=== PATIENT | male | born 1965 | race African-American/Black ===

== ENCOUNTER 2018-04-26 11:37 | Inpatient (IN) | payer OTHER ==
[2018-04-26 14:06] VITALS: BMI 34.4
--- NOTE | 2018-04-26 16:33 | HP ---
CIWA Score - CIWA Score Nausea/Vomitin-Mild Nausea/No Vomiting Muscle Tremors: 2 Anxiety: 2 Agitation: 1-Slight > Activity Paroxysmal Sweats: 1-Minimal Palms Moist Orientation: 1-Uncertain about Date Tacttile Disturbances: 2-Mild Itch/Numbness/Burn Auditory Disturbances: 0-None Visual Disturbances: 0-None Headache: 2-Mild CIWA-Ar Total Score: 12 Admission [facility] - HPI Chief Complaint: PATIENT PRESENTS WITH XANAX WITHDRAWAL SYMPTOMS. Allergies/Adverse Reactions: Allergies Allergy/AdvReac Type Severity Reaction Status Date / Time No Known Allergies Allergy Verified 04/26/18 15:31 History of Present Illness: PATIENT PRESENTS WITH XANAX WITHDRAWAL SYMPTOMS. PATIENT STARTED BUYING NON- PRESCRIBED XANAX ONE YEAR AGO AND TAKES UP TO 6MG DAILY. PATIENT LAST DOSE WAS YESTERDAY. PATIENT IS ALSO ON MMTP AND TAKES 120MG OF MTD. PENDING DOSE VERIFICATION BY RN. LAST DOSE THIS MORNING. PATIENT ALSO SMOKES CRACK ONCE A MONTH, 2 CIGARETTES. LAST TIME HE SMOKED WAS LAST WEEK. PMH INCLUDES ANXIETY, DEPRESSION, BLADDER CANCER, HTN AND HX OF DVT. NOT ON COUMADIN AT THIS TIME. PATIENT DENIES SI/HI AND SUICIDE ATTEMPTS. DENIES HX OF SEIZURES AND OVERDOSE. Exam Limitations: No Limitations - Ebola screening Have you traveled outside of the country in the last 21 days: No Have you had contact with anyone from an Ebola affected area: No Have you been sick,other than usual withdrawal symptoms: No Do you have a fever: No - Review of Systems Constitutional: Chills, Night Sweats, Changes in sleep EENT: reports: No Symptoms Reported Respiratory: reports: No Symptoms reported Cardiac: reports: No Symptoms Reported GI: reports: Nausea, Poor Fluid Intake, Abdominal cramping : reports: No Symptoms Reported Musculoskeletal: reports: No Symptoms Reported Integumentary: reports: Sweating Neuro: reports: Headache, Tremors Endocrine: reports: No Symptoms Reported Hematology: reports: No Symptoms Reported Psychiatric: reports: Orientated x3, Anxious, Depressed Patient History - Patient Medical History Hx Anemia: No Hx Asthma: No Hx Chronic Obstructive Pulmonary Disease (COPD): No Hx Cancer: Yes (BLADDER) Hx Cardiac Disorders: No Hx Congestive Heart Failure: No Hx Hypertension: No Hx Pacemaker: No HX Cerebrovascular Accident: No Hx Seizures: No Hx Dementia: No Hx Diabetes: No Hx Gastrointestinal Disorders: No Hx Liver Disease: No Hx Genitourinary Disorders: Yes (bladder cancer) Hx Sexually Transmitted Disorders: No Hx Renal Disease (ESRD): No Hx Thyroid Disease: No Hx Human Immunodeficiency Virus (HIV): No Hx Hepatitis C: No Hx Depression: Yes Hx Suicide Attempt: No Hx Bipolar Disorder: No Hx Schizophrenia: No - Patient Surgical History Past Surgical History: No Hx Neurologic Surgery: No Hx Cataract Extraction: No Hx Cardiac Surgery: No Hx Lung Surgery: No Hx Breast Surgery: No Hx Breast Biopsy: No Hx Abdominal Surgery: No Hx Appendectomy: No Hx Cholecystectomy: No Hx Genitourinary Surgery: No Hx Orthopedic Surgery: No Anesthesia Reaction: No - PPD History Documented Results: Positive w/proof PPD to be Administered?: No - Smoking Cessation Smoking history: Current every day smoker Have you smoked in the past 12 months: Yes Aproximately how many cigarettes per day: 5 Cigars Per Day: 0 Hx Chewing Tobacco Use: No Initiated information on smoking cessation: Yes 'Breaking Loose' booklet given: 04/26/18 - Substance & Tx. History Hx Alcohol Use: No Hx Substance Use: Yes Substance Use Type: Cocaine, Opiates, Tranquilizers Hx Substance Use Treatment: Yes - Substances Abused Alprazolam (Xanax) Route: Smoking Frequency: Daily Amount used: 6mg Age of first use: 52 Date of Last Use: 04/25/18 Family Disease History - Family Disease History Family Disease History: [place]: Grandparent (prostate), Brother (bladder) Admission Physical Exam [facility] - Vital Signs Vital Signs: Vital Signs - 24 hr 04/26/18 14:01 Temperature 98 F Pulse Rate 72 Respiratory 20 Rate Blood Pressure 137/73 - Physical General Appearance: Yes: Appropriately Dressed, Tremorous, Sweating, Anxious HEENTM: Yes: EOMI, Hearing grossly Normal, Normocephalic, Normal Voice, GABRIELA, Pharynx Normal Respiratory: Yes: Chest Non-Tender, Lungs Clear, Normal Breath Sounds, No Respiratory Distress, No Accessory Muscle Use Neck: Yes: No masses,lesions,Nodules, Supple Breast: Yes: Breast Exam Deferred Cardiology: Yes: Regular Rhythm, Regular Rate, S1, S2 Abdominal: Yes: Normal Bowel Sounds, Non Tender, Soft Genitourinary: Yes: Within Normal Limits Back: Yes: Normal Inspection Musculoskeletal: Yes: full range of Motion, Gait Steady Extremities: Yes: Normal Inspection, Normal Range of Motion, Non-Tender, Tremors , Swelling Neurological: Yes: commissioner of conciliation II-XII NML intact, Fully Oriented, Alert, Motor Strength 5/5, Normal Response, Depressed Affect Integumentary: Yes: Normal Color, Warm, Moist Lymphatic: Yes: Within Normal Limits - Diagnostic (1) Sedative, hypnotic, or anxiolytic withdrawal Current Visit: Yes Status: Acute (2) Cocaine dependence Current Visit: Yes Status: Chronic Qualifiers: Substance use status: uncomplicated Qualified Code(s): F14.20 - Cocaine dependence, uncomplicated (3) Methadone maintenance therapy patient Current Visit: Yes Status: Chronic (4) HTN (hypertension) Current Visit: Yes Status: Chronic Qualifiers: Hypertension type: unspecified Qualified Code(s): I10 - Essential (primary ) hypertension (5) Leg edema Current Visit: Yes Status: Chronic (6) Transitional cell carcinoma of bladder Current Visit: Yes Status: Chronic Cleared for Admission [facility] - Detox or Rehab [facility] Level of Care: Medically Managed Detox Regimen/Protocol: Valium [facility] Breath Alcohol Content Breath Alcohol Content: 0 Urine Drug Screen - Results Drug Screen Negative: No Urine Drug Screen Results: HERBIE-Cocaine, OPI-Opiates, BZO-Benzodiazepines, MTD- Methadone
[2018-04-26] MEDS ORDERED: MAGNESIUM CITRATE 300 ML BOTTLE PO PRN (16:45)
[2018-04-26] MEDS ORDERED: MENTHOL/PHENOL 1 EACH UD MM PRN (16:45)
[2018-04-26] MEDS ORDERED: guaiFENesin/D-METHORPHAN HB 10 ML UNIT-DOSE CUPS PO PRN (16:45)
[2018-04-26] MEDS ORDERED: hydrOXYzine PAMOATE 50 MG CAPSULE (FP) PO PRN (16:45)
[2018-04-26] MEDS ORDERED: ACETAMINOPHEN 325 MG TABLET (FP) PO PRN (16:45)
[2018-04-26] MEDS ORDERED: LOPERAMIDE HCL 2 MG CAPSULE PO PRN (16:45)
[2018-04-26] MEDS ORDERED: MAGNESIUM HYDROX 2400MG/30ML ORAL SUSPENSION 30 ML CUP PO PRN (16:45)
[2018-04-26] MEDS ORDERED: IBUPROFEN 400 MG TABLET (FP) PO PRN (16:45)
[2018-04-26] MEDS ORDERED: MAG HYDROX/AL HYDROX/SIMETH 30 ML UNIT-DOSE CUP PO PRN (16:45)
[2018-04-26] MEDS ORDERED: P-EPHED 60MG/TRIPROLIDI 2.5MG TABLET PO PRN (16:45)
[2018-04-26] MEDS ORDERED: NICOTINE POLACRILEX 2 MG GUM BC PRN (16:45)
[2018-04-26] MEDS ORDERED: diazePAM 5 MG TABLET PO PRN (16:47)
[2018-04-26] MEDS ORDERED: diazePAM 5 MG TABLET PO ONE (17:15)
[2018-04-26] MEDS ORDERED: MELATONIN 5 MG TABLETS PO PRN (22:00)
[2018-04-26] MEDS: THIAMINE HCL 100 MG TABLET (FP) PO SCH (23:05)
[2018-04-26] MEDS: diazePAM 5 MG TABLET PO SCH (23:05)
[2018-04-27 02:17] LABS: URINE APPEARANCE SLCLOUDY; URINE BILIRUBIN NEGATIVE (<2.0 mg/dL); URINE COLOR YELLOW; URINE GLUCOSE (UA) NEGATIVE (NEGATIVE); URINE KETONE NEGATIVE (NEGATIVE); URINE NITRITE NEGATIVE (NEGATIVE)
[2018-04-27 02:25] LABS: URINE LEUK ESTERASE 1+ (NEGATIVE); URINE PROTEIN 1+ (NEGATIVE)
[2018-04-27 02:33] LABS: EPI CELLS RARE /HPF (FEW); URINE BACTERIA RARE /hpf (NONE SEEN); URINE MUCUS RARE
[2018-04-27] MEDS: diazePAM 5 MG TABLET PO SCH ×3 (06:45→22:39)
[2018-04-27] MEDS ORDERED: METHADONE HCL 10 MG TABLET PO SCH (09:15)
--- NOTE | 2018-04-27 09:15 | CONSULT ---
[facility] Psychiatric Consult - Data Date of interview: 04/27/18 Admission source: [facility] Identifying data: This is 53 years old male, , father of five, homeless, on SSI support, with multiple medical [problems, with no psychiatric hospitalization history.Patient reports long history of Opioids, Cocaine and Xanax dependence, currently onMMTP 120mg per day. Patient reports withdrawal symptoms and seeking for detox. Substance Abuse History: Urine Drug Screen Results: HERBIE-Cocaine, OPI-Opiates, BZO-Benzodiazepines, MTD-Methadone. - Smoking Cessation. Smoking history: Current every day smoker. Have you smoked in the past 12 months: Yes. Aproximately how many cigarettes per day: 5. Cigars Per Day: 0. Hx Chewing Tobacco Use: No. Initiated information on smoking cessation: Yes. 'Breaking Loose' booklet given: 04/26/18. - Substance & Tx. History. Hx Alcohol Use: No. Hx Substance Use: Yes. Substance Use Type: Cocaine, Opiates, Tranquilizers. Hx Substance Use Treatment: Yes. - Substances Abused. Alprazolam (Xanax). Route: Smoking. Frequency: Daily. Amount used: 6mg. Age of first use: 52. Date of Last Use: 04/25/18 Medical History: MMTP 120mg per day, HTN, DM,Transitional Cell Carcinoma of Bladder , lower extremities edema, UTI History, DNT, Cellulitis history, Hematuria history. Psychiatric History: Patient reports history of depression and anxiety, reports no medications taking prior to admission, reports no psychiatric hospitalization history, no suicidal, homicidal history as well. Physical/Sexual Abuse/Trauma History: Denies Additional Comment: Urine Drug Screen Results: HERBIE-Cocaine, OPI-Opiates, BZO- Benzodiazepines, MTD-Methadone Mental Status Exam - Mental Status Exam Alert and Oriented to: Person Cognitive Function: Fair Patient Appearance: Unkempt Mood: Sad Affect: Flat Patient Behavior: Cooperative Speech Pattern: Delayed Voice Loudness: Mildly Soft/Quiet Thought Process: Goal Oriented Thought Disorder: Being Controlled Hallucinations: Denies Suicidal Ideation: Denies Homicidal Ideation: Denies Insight/Judgement: Fair Sleep: Difficulty falling asleep Appetite: Weight loss Muscle strength/Tone: Mild Hypotonicity Gait/Station: Normal Additional Comments: Urine Drug Screen Results: HERBIE-Cocaine, OPI-Opiates, BZO- Benzodiazepines, MTD-Methadone. Observation. Detox Unit Care Protocol Psychiatric Findings - Problem List (Thermal 1, 2,3) (1) Sedative, hypnotic, or anxiolytic withdrawal Current Visit: Yes Status: Acute (2) Cocaine dependence Current Visit: Yes Status: Chronic Qualifiers: Substance use status: uncomplicated Qualified Code(s): F14.20 - Cocaine dependence, uncomplicated (3) HTN (hypertension) Current Visit: Yes Status: Chronic Qualifiers: Hypertension type: unspecified Qualified Code(s): I10 - Essential (primary ) hypertension (4) Leg edema Current Visit: Yes Status: Chronic (5) Methadone maintenance therapy patient Current Visit: Yes Status: Chronic Comment: Urine Drug Screen Results: HERBIE- Cocaine, OPI-Opiates, BZO-Benzodiazepines, MTD-Methadone Observation Detox Unit Care Protocol (6) Transitional cell carcinoma of bladder Current Visit: Yes Status: Chronic (7) Cellulitis Current Visit: No Status: Acute (8) DVT (deep venous thrombosis) Current Visit: No Status: Acute (9) Diabetes mellitus Current Visit: No Status: Acute (10) Hematuria Current Visit: No Status: Acute (11) UTI (lower urinary tract infection) Current Visit: No Status: Acute (12) Urinary retention Current Visit: No Status: Acute - Initial Treatment Plan Initial Treatment Plan: Urine Drug Screen Results: HERBIE-Cocaine, OPI-Opiates, BZO -Benzodiazepines, MTD-Methadone. Observation. Detox Unit Care Protocol
[2018-04-27] MEDS ORDERED: METHADONE HCL 40 MG DISPERSABLE TABLET ONE (09:25)
[2018-04-27] MEDS ORDERED: METHADONE HCL 5 MG TABLET ONE (09:25)
[2018-04-27] MEDS ORDERED: METHADONE HCL 10 MG TABLET ONE (09:26)
[2018-04-27 10:41] LABS: HEMATOCRIT 32.2 % (35.4-49); HEMOGLOBIN 10.8 GM/dL (11.7-16.9); MCH 29.3 pg (25.7-33.7); MCHC 33.5 g/dl (32.0-35.9); MEAN CELL VOLUME 87.6 fl (80-96); MEAN PLT VOLUME 7.8 fl (7.5-11.1); PLATELET COUNT 341 K/MM3 (134-434); RBC 3.68 M/mm3 (4.00-5.60); RDW 15.5 % (11.9-15.9); WHITE BLOOD COUNT 7.2 K/mm3 (4.0-10.0)
[2018-04-27 11:08] LABS: ALBUMIN 2.9 g/dl (3.4-5.0); ANION GAP 8 (8-16); BILIRUBIN,TOTAL 0.2 mg/dL (0.2-1.0); BLOOD UREA NITROGEN 17 mg/dL (7-18); CALCIUM 8.5 mg/dL (8.5-10.1); CHLORIDE 111 mmol/L (98-107); CO2 27 mmol/L (21-32); CREATININE 1.4 mg/dL (0.7-1.3); GLUCOSE,RANDOM 88 mg/dL (74-106); POTASSIUM 4.6 mmol/L (3.5-5.1); SGOT/AST 17 U/L (15-37); SGPT/ALT 17 U/L (12-78); SODIUM 146 mmol/L (136-145)
[2018-04-27] MEDS: PRENATAL VITAMINS W/ FOLIC ACID TABLET (FP) PO SCH (11:14)
[2018-04-27] MEDS: METHADONE 80 MG, METHADONE 30 MG, METHADONE 5 MG PO SCH (11:15)
[2018-04-27] MEDS: NICOTINE 21 MG/24 HOURS TOPICAL PATCH TD SCH (11:20)
--- NOTE | 2018-04-27 11:27 | PN ---
S CIWA - CIWA Score Nausea/Vomitin Muscle Tremors: 3 Anxiety: 3 Agitation: 2 Paroxysmal Sweats: 1-Minimal Palms Moist Orientation: 0-Oriented Tacttile Disturbances: 1-Very Mild Itch/Numbness Auditory Disturbances: 1-Very Mild Visual Disturbances: 0-None Headache: 2-Mild CIWA-Ar Total Score: 16 [facility] Progress Note (SOAP) Subjective: alert,irritable,anxious,interrupted sleep,tremor Objective: 04/27/18 11:25 Vital Signs Temperature 98.2 F 04/27/18 10:28 Pulse Rate 71 04/27/18 10:28 Respiratory Rate 18 04/27/18 10:28 Blood Pressure 126/53 04/27/18 10:28 O2 Sat by Pulse Oximetry (%) ekg nsr,normal ecg qt 412/451 Laboratory Last Values WBC 7.2 K/mm3 (4.0-10.0) 04/27/18 07:00 RBC 3.68 M/mm3 (4.00-5.60) L 04/27/18 07:00 Hgb 10.8 GM/dL (11.7-16.9) L 04/27/18 07:00 Hct 32.2 % (35.4-49) L 04/27/18 07:00 MCV 87.6 fl (80-96) 04/27/18 07:00 MCH 29.3 pg (25.7-33.7) D 04/27/18 07:00 MCHC 33.5 g/dl (32.0-35.9) 04/27/18 07:00 RDW 15.5 % (11.9-15.9) D 04/27/18 07:00 Plt Count 341 K/MM3 (134-434) 04/27/18 07:00 MPV 7.8 fl (7.5-11.1) 04/27/18 07:00 Sodium 146 mmol/L (136-145) H 04/27/18 07:00 Potassium 4.6 mmol/L (3.5-5.1) 04/27/18 07:00 Chloride 111 mmol/L (98-107) H 04/27/18 07:00 Carbon Dioxide 27 mmol/L (21-32) 04/27/18 07:00 Anion Gap 8 (8-16) 04/27/18 07:00 BUN 17 mg/dL (7-18) 04/27/18 07:00 Creatinine 1.4 mg/dL (0.7-1.3) H 04/27/18 07:00 Creat Clearance w eGFR 53.43 (>60) 04/27/18 07:00 Random Glucose 88 mg/dL (74-106) 04/27/18 07:00 Calcium 8.5 mg/dL (8.5-10.1) 04/27/18 07:00 Total Bilirubin 0.2 mg/dL (0.2-1.0) 04/27/18 07:00 AST 17 U/L (15-37) 04/27/18 07:00 ALT 17 U/L (12-78) 04/27/18 07:00 Albumin 2.9 g/dl (3.4-5.0) L 04/27/18 07:00 Urine Color Yellow 04/27/18 00:01 Urine Appearance Slcloudy 04/27/18 00:01 Urine pH 5.0 (5.0-8.0) 04/27/18 00:01 Ur Specific [place] 1.025 (1.001-1.035) 04/27/18 00:01 Urine Protein 1+ (NEGATIVE) H 04/27/18 00:01 Urine Glucose (UA) Negative (NEGATIVE) 04/27/18 00:01 Urine Ketones Negative (NEGATIVE) 04/27/18 00:01 Urine Blood Negative (NEGATIVE) 04/27/18 00:01 Urine Nitrite Negative (NEGATIVE) 04/27/18 00:01 Urine Bilirubin Negative (<2.0 mg/dL) 04/27/18 00:01 Urine Urobilinogen 2.0 mg/dL (0.2-1.0) 04/27/18 00:01 Ur Leukocyte Esterase 1+ (NEGATIVE) H 04/27/18 00:01 Urine WBC (Auto) 37 /hpf (3-5) 04/27/18 00:01 Urine RBC (Auto) 4 /hpf (0-3) 04/27/18 00:01 Ur Epithelial Cells Rare /HPF (FEW) 04/27/18 00:01 Urine Bacteria Rare /hpf (NONE SEEN) 04/27/18 00:01 Urine Mucus Rare 04/27/18 00:01 Assessment: 04/27/18 11:27 withdrawal symptom Plan: continue detox
[2018-04-27 11:34] LABS: ALK PHOS 116 U/L (45-117); TOT PROT 6.4 g/dl (6.4-8.2)
--- NOTE | 2018-04-27 16:49 | EKG ---
Test Reason : Blood Pressure : / mmHG Vent. Rate : 072 BPM Atrial Rate : 072 BPM P-R Int : 154 ms QRS Dur : 092 ms QT Int : 412 ms P-R-T Axes : 014 -08 013 degrees QTc Int : 451 ms NORMAL SINUS RHYTHM NORMAL ECG WHEN COMPARED WITH ECG OF 28-FEB-2015 18:47, NONSPECIFIC T WAVE ABNORMALITY, IMPROVED IN LATERAL LEADS Confirmed by ARIEL GOODE MD ([id number]) on 04/27/2018 3:51:44 PM Referred By: Confirmed By:ARIEL GOODE MD
[2018-04-27] MEDS: THIAMINE HCL 100 MG TABLET (FP) PO SCH (22:39)
[2018-04-28] MEDS ORDERED: METHADONE HCL 40 MG DISPERSABLE TABLET ONE (04:57)
[2018-04-28] MEDS ORDERED: METHADONE HCL 5 MG TABLET ONE (04:57)
[2018-04-28] MEDS ORDERED: METHADONE HCL 10 MG TABLET ONE (04:58)
[2018-04-28] MEDS: METHADONE 80 MG, METHADONE 30 MG, METHADONE 5 MG PO SCH (05:41)
[2018-04-28] MEDS: diazePAM 5 MG TABLET PO SCH ×2 (10:36→22:18)
[2018-04-28] MEDS: PRENATAL VITAMINS W/ FOLIC ACID TABLET (FP) PO SCH (10:36)
[2018-04-28] MEDS: NICOTINE 21 MG/24 HOURS TOPICAL PATCH TD SCH (10:36)
--- NOTE | 2018-04-28 10:37 | PN ---
S CIWA - CIWA Score Nausea/Vomitin Muscle Tremors: 3 Anxiety: 2 Agitation: 2 Paroxysmal Sweats: 1-Minimal Palms Moist Orientation: 0-Oriented Tacttile Disturbances: 1-Very Mild Itch/Numbness Auditory Disturbances: 1-Very Mild Visual Disturbances: 0-None Headache: 2-Mild CIWA-Ar Total Score: 15 [facility] Progress Note (SOAP) Subjective: alert,irritable,anxious,interrupted sleep,tremor Objective: 04/28/18 10:37 Vital Signs Temperature 98.1 F 04/28/18 09:23 Pulse Rate 69 04/28/18 09:23 Respiratory Rate 18 04/28/18 09:23 Blood Pressure 147/82 04/28/18 09:23 O2 Sat by Pulse Oximetry (%) 04/28/18 10:38 Laboratory Last Values WBC 7.2 K/mm3 (4.0-10.0) 04/27/18 07:00 RBC 3.68 M/mm3 (4.00-5.60) L 04/27/18 07:00 Hgb 10.8 GM/dL (11.7-16.9) L 04/27/18 07:00 Hct 32.2 % (35.4-49) L 04/27/18 07:00 MCV 87.6 fl (80-96) 04/27/18 07:00 MCH 29.3 pg (25.7-33.7) D 04/27/18 07:00 MCHC 33.5 g/dl (32.0-35.9) 04/27/18 07:00 RDW 15.5 % (11.9-15.9) D 04/27/18 07:00 Plt Count 341 K/MM3 (134-434) 04/27/18 07:00 MPV 7.8 fl (7.5-11.1) 04/27/18 07:00 Sodium 146 mmol/L (136-145) H 04/27/18 07:00 Potassium 4.6 mmol/L (3.5-5.1) 04/27/18 07:00 Chloride 111 mmol/L (98-107) H 04/27/18 07:00 Carbon Dioxide 27 mmol/L (21-32) 04/27/18 07:00 Anion Gap 8 (8-16) 04/27/18 07:00 BUN 17 mg/dL (7-18) 04/27/18 07:00 Creatinine 1.4 mg/dL (0.7-1.3) H 04/27/18 07:00 Creat Clearance w eGFR 53.43 (>60) 04/27/18 07:00 Random Glucose 88 mg/dL (74-106) 04/27/18 07:00 Calcium 8.5 mg/dL (8.5-10.1) 04/27/18 07:00 Total Bilirubin 0.2 mg/dL (0.2-1.0) 04/27/18 07:00 AST 17 U/L (15-37) 04/27/18 07:00 ALT 17 U/L (12-78) 04/27/18 07:00 Alkaline Phosphatase 116 U/L (45-117) 04/27/18 07:00 Total Protein 6.4 g/dl (6.4-8.2) 04/27/18 07:00 Albumin 2.9 g/dl (3.4-5.0) L 04/27/18 07:00 Urine Color Yellow 04/27/18 00:01 Urine Appearance Slcloudy 04/27/18 00:01 Urine pH 5.0 (5.0-8.0) 04/27/18 00:01 Ur Specific [place] 1.025 (1.001-1.035) 04/27/18 00:01 Urine Protein 1+ (NEGATIVE) H 04/27/18 00:01 Urine Glucose (UA) Negative (NEGATIVE) 04/27/18 00:01 Urine Ketones Negative (NEGATIVE) 04/27/18 00:01 Urine Blood Negative (NEGATIVE) 04/27/18 00:01 Urine Nitrite Negative (NEGATIVE) 04/27/18 00:01 Urine Bilirubin Negative (<2.0 mg/dL) 04/27/18 00:01 Urine Urobilinogen 2.0 mg/dL (0.2-1.0) 04/27/18 00:01 Ur Leukocyte Esterase 1+ (NEGATIVE) H 04/27/18 00:01 Urine WBC (Auto) 37 /hpf (3-5) 04/27/18 00:01 Urine RBC (Auto) 4 /hpf (0-3) 04/27/18 00:01 Ur Epithelial Cells Rare /HPF (FEW) 04/27/18 00:01 Urine Bacteria Rare /hpf (NONE SEEN) 04/27/18 00:01 Urine Mucus Rare 04/27/18 00:01 Assessment: 04/28/18 10:38 withdrawal symptom Plan: continue detox,repeat ua
[2018-04-28] MEDS: THIAMINE HCL 100 MG TABLET (FP) PO SCH (22:18)
[2018-04-29] MEDS ORDERED: METHADONE HCL 5 MG TABLET ONE (04:20)
[2018-04-29] MEDS ORDERED: METHADONE HCL 40 MG DISPERSABLE TABLET ONE (04:20)
[2018-04-29] MEDS ORDERED: METHADONE HCL 10 MG TABLET ONE (04:21)
[2018-04-29] MEDS: METHADONE 80 MG, METHADONE 30 MG, METHADONE 5 MG PO SCH (05:23)
[2018-04-29] MEDS: diazePAM 5 MG TABLET PO SCH ×2 (10:33→23:32)
[2018-04-29] MEDS: PRENATAL VITAMINS W/ FOLIC ACID TABLET (FP) PO SCH (10:33)
[2018-04-29] MEDS: NICOTINE 21 MG/24 HOURS TOPICAL PATCH TD SCH (10:34)
--- NOTE | 2018-04-29 22:35 | PN ---
[facility] Progress Note (SOAP) Subjective: Tremors Sleepy sweats Objective: 04/29/18 22:33 Sitting up on bed Nodding off but easily arousable Vital Signs Temperature 98.1 F 04/29/18 22:18 Pulse Rate 58 L 04/29/18 22:18 Respiratory Rate 18 04/29/18 22:18 Blood Pressure 129/69 04/29/18 22:18 O2 Sat by Pulse Oximetry (%) Assessment: 04/29/18 22:34 withdrawal sx Plan: Continue detox
[2018-04-29] MEDS: THIAMINE HCL 100 MG TABLET (FP) PO SCH (23:32)
[2018-04-30] MEDS ORDERED: METHADONE HCL 5 MG TABLET ONE (04:10)
[2018-04-30] MEDS ORDERED: METHADONE HCL 10 MG TABLET ONE (04:10)
[2018-04-30] MEDS ORDERED: METHADONE HCL 40 MG DISPERSABLE TABLET ONE (04:10)
[2018-04-30] MEDS: METHADONE 80 MG, METHADONE 30 MG, METHADONE 5 MG PO SCH (05:25)
[2018-04-30] MEDS ORDERED: diazePAM 5 MG TABLET PO SCH (10:00)
[2018-04-30 10:55] LABS: URINE APPEARANCE CLEAR; URINE BILIRUBIN NEGATIVE (<2.0 mg/dL); URINE COLOR LTYELLOW; URINE GLUCOSE (UA) NEGATIVE (NEGATIVE); URINE KETONE NEGATIVE (NEGATIVE); URINE LEUK ESTERASE NEGATIVE (NEGATIVE); URINE NITRITE NEGATIVE (NEGATIVE); URINE PROTEIN NEGATIVE (NEGATIVE); URINE UROBILINOGEN NEGATIVE mg/dL (0.2-1.0)
[2018-04-30] MEDS: PRENATAL VITAMINS W/ FOLIC ACID TABLET (FP) PO SCH (11:20)
[2018-04-30] MEDS: NICOTINE 21 MG/24 HOURS TOPICAL PATCH TD SCH (11:21)
--- NOTE | 2018-04-30 11:29 | PN ---
S Progress Note (SOAP) Subjective: Mild tremors and sweats, constipation Objective: 04/30/18 11:28 Vital Signs - 8 hr 04/30/18 04/30/18 04/30/18 03:30 06:00 10:00 Temperature 97.7 F 97.9 F Pulse Rate 63 60 Respiratory 17 18 18 Rate Blood Pressure 127/64 121/67 Laboratory Last Values WBC 7.2 K/mm3 (4.0-10.0) 04/27/18 07:00 RBC 3.68 M/mm3 (4.00-5.60) L 04/27/18 07:00 Hgb 10.8 GM/dL (11.7-16.9) L 04/27/18 07:00 Hct 32.2 % (35.4-49) L 04/27/18 07:00 MCV 87.6 fl (80-96) 04/27/18 07:00 MCH 29.3 pg (25.7-33.7) D 04/27/18 07:00 MCHC 33.5 g/dl (32.0-35.9) 04/27/18 07:00 RDW 15.5 % (11.9-15.9) D 04/27/18 07:00 Plt Count 341 K/MM3 (134-434) 04/27/18 07:00 MPV 7.8 fl (7.5-11.1) 04/27/18 07:00 Sodium 146 mmol/L (136-145) H 04/27/18 07:00 Potassium 4.6 mmol/L (3.5-5.1) 04/27/18 07:00 Chloride 111 mmol/L (98-107) H 04/27/18 07:00 Carbon Dioxide 27 mmol/L (21-32) 04/27/18 07:00 Anion Gap 8 (8-16) 04/27/18 07:00 BUN 17 mg/dL (7-18) 04/27/18 07:00 Creatinine 1.4 mg/dL (0.7-1.3) H 04/27/18 07:00 Creat Clearance w eGFR 53.43 (>60) 04/27/18 07:00 Random Glucose 88 mg/dL (74-106) 04/27/18 07:00 Calcium 8.5 mg/dL (8.5-10.1) 04/27/18 07:00 Total Bilirubin 0.2 mg/dL (0.2-1.0) 04/27/18 07:00 AST 17 U/L (15-37) 04/27/18 07:00 ALT 17 U/L (12-78) 04/27/18 07:00 Alkaline Phosphatase 116 U/L (45-117) 04/27/18 07:00 Total Protein 6.4 g/dl (6.4-8.2) 04/27/18 07:00 Albumin 2.9 g/dl (3.4-5.0) L 04/27/18 07:00 Urine Color Ltyellow 04/30/18 08:00 Urine Appearance Clear 04/30/18 08:00 Urine pH 7.0 (5.0-8.0) D 04/30/18 08:00 Ur Specific [place] 1.013 (1.001-1.035) 04/30/18 08:00 Urine Protein Negative (NEGATIVE) 04/30/18 08:00 Urine Glucose (UA) Negative (NEGATIVE) 04/30/18 08:00 Urine Ketones Negative (NEGATIVE) 04/30/18 08:00 Urine Blood Negative (NEGATIVE) 04/30/18 08:00 Urine Nitrite Negative (NEGATIVE) 04/30/18 08:00 Urine Bilirubin Negative (<2.0 mg/dL) 04/30/18 08:00 Urine Urobilinogen Negative mg/dL (0.2-1.0) 04/30/18 08:00 Ur Leukocyte Esterase Negative (NEGATIVE) 04/30/18 08:00 Urine WBC (Auto) 37 /hpf (3-5) 04/27/18 00:01 Urine RBC (Auto) 4 /hpf (0-3) 04/27/18 00:01 Ur Epithelial Cells Rare /HPF (FEW) 04/27/18 00:01 Urine Bacteria Rare /hpf (NONE SEEN) 04/27/18 00:01 Urine Mucus Rare 04/27/18 00:01 RPR Titer Nonreactive (NONREACTIVE) 04/27/18 07:00 Labs noted Assessment: 04/30/18 11:29 Withdrawal sx Constipation Plan: Continue detox Encouraged to drink water and to ask RN for MOM
[2018-04-30] MEDS: THIAMINE HCL 100 MG TABLET (FP) PO SCH (23:57)
[2018-05-01] MEDS ORDERED: METHADONE HCL 10 MG TABLET ONE (03:45)
[2018-05-01] MEDS ORDERED: METHADONE HCL 40 MG DISPERSABLE TABLET ONE (03:45)
[2018-05-01] MEDS ORDERED: METHADONE HCL 5 MG TABLET ONE (03:45)
[2018-05-01] MEDS: METHADONE 80 MG, METHADONE 30 MG, METHADONE 5 MG PO SCH (05:54)
--- NOTE | 2018-05-01 08:39 | PN ---
S Progress Note (SOAP) Subjective: alert,no complaint Objective: 05/01/18 08:38 Vital Signs Temperature 97.7 F 05/01/18 06:32 Pulse Rate 63 05/01/18 06:32 Respiratory Rate 18 05/01/18 06:32 Blood Pressure 123/78 05/01/18 06:32 O2 Sat by Pulse Oximetry (%) Assessment: 05/01/18 08:38 detox completed,no withdrawal symptom Plan: discharge today,follow up with after care program as arrangement
--- NOTE | 2018-05-01 08:46 | DS ---
[facility] Detox Discharge Summary Admission Date: 04/26/18 Discharge Date: 05/01/18 - History Present History: Cocaine Dependence, Sedative Dependence, MMTP Additional Comments: follow up with after care program as arrangement Pertinent Past History: hypertension edema of legs carcinoma of bladder - Physical Exam Results Vital Signs: Vital Signs Temperature 97.7 F 05/01/18 06:32 Pulse Rate 63 05/01/18 06:32 Respiratory Rate 18 05/01/18 06:32 Blood Pressure 123/78 05/01/18 06:32 O2 Sat by Pulse Oximetry (%) Pertinent Admission Physical Exam Findings: withdrawal signs and symptom Laboratory Last Values WBC 7.2 K/mm3 (4.0-10.0) 04/27/18 07:00 RBC 3.68 M/mm3 (4.00-5.60) L 04/27/18 07:00 Hgb 10.8 GM/dL (11.7-16.9) L 04/27/18 07:00 Hct 32.2 % (35.4-49) L 04/27/18 07:00 MCV 87.6 fl (80-96) 04/27/18 07:00 MCH 29.3 pg (25.7-33.7) D 04/27/18 07:00 MCHC 33.5 g/dl (32.0-35.9) 04/27/18 07:00 RDW 15.5 % (11.9-15.9) D 04/27/18 07:00 Plt Count 341 K/MM3 (134-434) 04/27/18 07:00 MPV 7.8 fl (7.5-11.1) 04/27/18 07:00 Sodium 146 mmol/L (136-145) H 04/27/18 07:00 Potassium 4.6 mmol/L (3.5-5.1) 04/27/18 07:00 Chloride 111 mmol/L (98-107) H 04/27/18 07:00 Carbon Dioxide 27 mmol/L (21-32) 04/27/18 07:00 Anion Gap 8 (8-16) 04/27/18 07:00 BUN 17 mg/dL (7-18) 04/27/18 07:00 Creatinine 1.4 mg/dL (0.7-1.3) H 04/27/18 07:00 Creat Clearance w eGFR 53.43 (>60) 04/27/18 07:00 Random Glucose 88 mg/dL (74-106) 04/27/18 07:00 Calcium 8.5 mg/dL (8.5-10.1) 04/27/18 07:00 Total Bilirubin 0.2 mg/dL (0.2-1.0) 04/27/18 07:00 AST 17 U/L (15-37) 04/27/18 07:00 ALT 17 U/L (12-78) 04/27/18 07:00 Alkaline Phosphatase 116 U/L (45-117) 04/27/18 07:00 Total Protein 6.4 g/dl (6.4-8.2) 04/27/18 07:00 Albumin 2.9 g/dl (3.4-5.0) L 04/27/18 07:00 Urine Color Ltyellow 04/30/18 08:00 Urine Appearance Clear 04/30/18 08:00 Urine pH 7.0 (5.0-8.0) D 04/30/18 08:00 Ur Specific [place] 1.013 (1.001-1.035) 04/30/18 08:00 Urine Protein Negative (NEGATIVE) 04/30/18 08:00 Urine Glucose (UA) Negative (NEGATIVE) 04/30/18 08:00 Urine Ketones Negative (NEGATIVE) 04/30/18 08:00 Urine Blood Negative (NEGATIVE) 04/30/18 08:00 Urine Nitrite Negative (NEGATIVE) 04/30/18 08:00 Urine Bilirubin Negative (<2.0 mg/dL) 04/30/18 08:00 Urine Urobilinogen Negative mg/dL (0.2-1.0) 04/30/18 08:00 Ur Leukocyte Esterase Negative (NEGATIVE) 04/30/18 08:00 Urine WBC (Auto) 37 /hpf (3-5) 04/27/18 00:01 Urine RBC (Auto) 4 /hpf (0-3) 04/27/18 00:01 Ur Epithelial Cells Rare /HPF (FEW) 04/27/18 00:01 Urine Bacteria Rare /hpf (NONE SEEN) 04/27/18 00:01 Urine Mucus Rare 04/27/18 00:01 RPR Titer Nonreactive (NONREACTIVE) 04/27/18 07:00 Vital Signs Temperature 97.7 F 05/01/18 06:32 Pulse Rate 63 05/01/18 06:32 Respiratory Rate 18 05/01/18 06:32 Blood Pressure 123/78 05/01/18 06:32 O2 Sat by Pulse Oximetry (%) - Treatment Hospital Course: Detox Protocol Followed, Detoxed Safely, Responded well, Discharged Condition Good, Rehab Referral Accepted Patient has Accepted a Rehab Referral to: [facility] - Medication Discharge Medications: Ambulatory Orders Methadone [Dolophine -] 80 mg PO DAILY 01/16/15 Warfarin Sodium [Coumadin] 5 mg PO DAILY 05/13/15 - Diagnosis (1) Sedative, hypnotic, or anxiolytic withdrawal Current Visit: Yes Status: Acute (2) Cocaine dependence Current Visit: Yes Status: Chronic Qualifiers: Substance use status: uncomplicated Qualified Code(s): F14.20 - Cocaine dependence, uncomplicated (3) HTN (hypertension) Current Visit: Yes Status: Chronic Qualifiers: Hypertension type: unspecified Qualified Code(s): I10 - Essential (primary ) hypertension (4) Leg edema Current Visit: Yes Status: Chronic (5) Methadone maintenance therapy patient Current Visit: Yes Status: Chronic (6) Transitional cell carcinoma of bladder Current Visit: Yes Status: Chronic - AMA Did Patient Leave Against Medical Advice: No
--- NOTE | 2018-05-01 08:54 | PN ---
[facility] Progress Note Note: patient is non compliance on taking medication,did not take coumadin for months, did not want to take medication,he will go to see his primary care provider for evaluation upon discharge,follow up with new focus as arrangement
[2018-05-01 10:01] VITALS: BP 128/69; PULSE 76; TEMP 98.4
[2018-05-01] MEDS: NICOTINE 21 MG/24 HOURS TOPICAL PATCH TD SCH (10:35)
[2018-05-01] MEDS: PRENATAL VITAMINS W/ FOLIC ACID TABLET (FP) PO SCH (10:35)
== END 2018-05-01 13:32 | disposition other institution (70) | DRG 773 ==
LOC: YASAS 11:37 → Y6N 16:19
PROVIDERS: ADMIT Surgery; ATTEND Surgery
PROC: HZ2ZZZZ Detoxification Services for Substance Abuse Treatment (ICD-10-PCS; principal; 2018-04-26)
DX: F13.230 Sedative, hypnotic or anxiolytic dependence with withdrawal, uncomplicated (principal); F11.20 Opioid dependence, uncomplicated; F14.20 Cocaine dependence, uncomplicated; F17.210 Nicotine dependence, cigarettes, uncomplicated; I10 Essential (primary) hypertension; R60.0 Localized edema; C67.9 Malignant neoplasm of bladder, unspecified; K59.00 Constipation, unspecified; Z91.14 Patient's other noncompliance with medication regimen
CPT/HCPCS: 36415; 80053; 81003; 81015; 85027; 86593; 93005; 93010

== ENCOUNTER 2018-05-01 13:49 | Inpatient (IN) | payer OTHER ==
--- NOTE | 2018-05-01 14:21 | HP ---
Psychiatrist Admission - Data Date of interview: 05/01/18 Admission source: 6N Identifying data: This is the first [facility] admission for this 53 years old Black male, father of 5 children, unemployed on SSI/SSD, homeless Medical History: Significant for history of treatment for PPD+, DVT and bladder cancer. Patient is on methadone 115 mg/day. Smokes 5 cigarettes daily Psychiatric History: Denies history of previous psychiatric treatment Physical/Sexual Abuse/Trauma History: Denies emotional, physical or sexual abuse as well as DV relationship. No service Additional Comment: Reports history of multiple previous arrests including one felony convictions on charges of robbery. Reports serving over 20 years in long term Allergies/Adverse Reactions: Allergies Allergy/AdvReac Type Severity Reaction Status Date / Time No Known Allergies Allergy Verified 04/26/18 15:31 Date of last physical exam: 04/26/18 Concur with the findings of this exam: Yes - Substance Abuse/Tx History Hx Alcohol Use: No Hx Substance Use: Yes Substance Use Type: Tranquilizers (Started using xanax at age 52, consumes 6 mg daily. Last used on 04/25/18) Hx Substance Use Treatment: Yes (Currently attends [facility]. @ previous inpt detox. [facility]) Mental Status Exam - Mental Status Exam Alert and Oriented to: Time, Place, Person Cognitive Function: Fair Patient Appearance: Well Groomed Mood: Hopeful, Euthymic Affect: Appropriate Patient Behavior: Cooperative Speech Pattern: Clear Voice Loudness: Normal Thought Process: Intact Thought Disorder: Not Present Hallucinations: Denies Suicidal Ideation: Denies Homicidal Ideation: Denies Insight/Judgement: Fair Sleep: Well Appetite: Good Muscle strength/Tone: Normal Gait/Station: Normal Psychiatric Findings - Problem List ([place] 1, 2,3) (1) Sedative hypnotic or anxiolytic dependence Current Visit: Yes Status: Acute (2) Opioid dependence on agonist therapy Current Visit: Yes Status: Chronic (3) Nicotine dependence Current Visit: Yes Status: Chronic (4) Transitional cell carcinoma of bladder Current Visit: No Status: Suspected - Initial Treatment Plan Initial Treatment Plan: Monitor progress
--- NOTE | 2018-05-01 15:44 | HP ---
YVETTE SEYMOUR Rehab Assess/Revision - Admission History Admitted to Rehab from: [facility] [place] Date of Admission to Rehab: 05/01/18 - Findings Detox History & Physical reviewed: Yes Concur with findings: Yes Comments/Additional Findings: for rhab as proocol Inpatient Rehab Admission - Initial Determination Are CD services needed?: Yes Free of communicable disease: Yes Not in need of hospitalization: No - Rehab Admission Criteria Previous failed treatment: Yes Poor recovery environment: Yes Comorbidities: Yes Lacks judgement: No Patient is meeting Inpatient Rehab admission criteria:: Yes
[2018-05-01] MEDS ORDERED: MENTHOL/PHENOL 1 EACH UD MM PRN (15:45)
[2018-05-01] MEDS ORDERED: hydrOXYzine PAMOATE 50 MG CAPSULE (FP) PO PRN (15:45)
[2018-05-01] MEDS ORDERED: P-EPHED 60MG/TRIPROLIDI 2.5MG TABLET PO PRN (15:45)
[2018-05-01] MEDS ORDERED: ACETAMINOPHEN 325 MG TABLET (FP) PO PRN (15:45)
[2018-05-01] MEDS ORDERED: IBUPROFEN 400 MG TABLET (FP) PO PRN (15:45)
[2018-05-01] MEDS ORDERED: guaiFENesin/D-METHORPHAN HB 10 ML UNIT-DOSE CUPS PO PRN (15:45)
[2018-05-01] MEDS ORDERED: MAGNESIUM HYDROX 2400MG/30ML ORAL SUSPENSION 30 ML CUP PO PRN (15:45)
[2018-05-01] MEDS ORDERED: MAGNESIUM CITRATE 300 ML BOTTLE PO PRN (15:45)
[2018-05-01] MEDS ORDERED: MAG HYDROX/AL HYDROX/SIMETH 30 ML UNIT-DOSE CUP PO PRN (15:45)
[2018-05-01] MEDS: THIAMINE HCL 100 MG TABLET (FP) PO SCH (21:32)
[2018-05-02] MEDS ORDERED: METHADONE HCL 10 MG TABLET PO SCH (06:00)
[2018-05-02] MEDS ORDERED: METHADONE HCL 10 MG TABLET ONE (06:14)
[2018-05-02] MEDS ORDERED: METHADONE HCL 5 MG TABLET ONE (06:14)
[2018-05-02] MEDS ORDERED: METHADONE HCL 40 MG DISPERSABLE TABLET ONE (06:15)
[2018-05-02] MEDS: METHADONE 80 MG, METHADONE 30 MG, METHADONE 5 MG PO SCH (06:15)
--- NOTE | 2018-05-02 09:15 | HP ---
Psychiatrist Admission - Data Date of interview: 05/02/18 Admission source: 6N Identifying data: This is the first [facility] admission for this 53 years old single male, father of 2 children, unemployed on SSI Medical History: Significant for hypertension, PPD+ and history of treatment for DVT and bladder cancer. Patient is on methadone 120 mg/day. Smokes 5 cigarettes daily Vital Signs: Vital Signs - 24 hr 05/02/18 05/02/18 05/02/18 00:50 03:30 06:36 Temperature 98.1 F Pulse Rate 58 L Respiratory 18 18 19 Rate Blood Pressure 125/76 Allergies/Adverse Reactions: Allergies Allergy/AdvReac Type Severity Reaction Status Date / Time No Known Allergies Allergy Verified 04/26/18 15:31 Date of last physical exam: 04/26/18 Concur with the findings of this exam: Yes - Substance Abuse/Tx History Hx Alcohol Use: No Hx Substance Use: Yes Substance Use Type: Prescribed (Started using xanax at age 52, consumes 6 mg daily. Last used on 04/25/18) Psychiatric Findings - Problem List ([place] 1, 2,3) (1) Sedative hypnotic or anxiolytic dependence Current Visit: Yes Status: Acute (2) Opioid dependence on agonist therapy Current Visit: Yes Status: Chronic (3) Nicotine dependence Current Visit: Yes Status: Chronic (4) Transitional cell carcinoma of bladder Current Visit: No Status: Suspected
[2018-05-02] MEDS: PRENATAL VITAMINS W/ FOLIC ACID TABLET (FP) PO SCH (10:23)
[2018-05-02] MEDS ORDERED: PNEUMOC 13-VAL CONJ-DIP CRM/PF 0.5 ML DISP.SYRIN IM ONE (12:00)
[2018-05-02 15:28] LABS: ALBUMIN 3.5 g/dl (3.4-5.0); ANION GAP 5 (8-16); BLOOD UREA NITROGEN 28 mg/dL (7-18); CALCIUM 9.3 mg/dL (8.5-10.1); CHLORIDE 102 mmol/L (98-107); CO2 33 mmol/L (21-32); CREATININE 1.6 mg/dL (0.7-1.3); GLUCOSE,RANDOM 121 mg/dL (74-106); POTASSIUM 4.9 mmol/L (3.5-5.1); SGOT/AST 21 U/L (15-37); SGPT/ALT 24 U/L (12-78); SODIUM 140 mmol/L (136-145)
[2018-05-02 15:29] LABS: ALK PHOS 131 U/L (45-117); BILIRUBIN,TOTAL 0.2 mg/dL (0.2-1.0); TOT PROT 7.4 g/dl (6.4-8.2)
[2018-05-02 15:58] LABS: HEMATOCRIT 34.7 % (35.4-49); HEMOGLOBIN 11.5 GM/dL (11.7-16.9); MCH 29.1 pg (25.7-33.7); MCHC 33.1 g/dl (32.0-35.9); MEAN CELL VOLUME 88.1 fl (80-96); MEAN PLT VOLUME 7.8 fl (7.5-11.1); PLATELET COUNT 366 K/MM3 (134-434); RBC 3.94 M/mm3 (4.00-5.60); RDW 15.2 % (11.9-15.9)
[2018-05-02 16:24] LABS: INR 1.05 (0.83-1.09); PROTHROMBIN TIME (PATIENT) 11.9 SEC (9.7-13.0)
[2018-05-02] MEDS: THIAMINE HCL 100 MG TABLET (FP) PO SCH (21:38)
[2018-05-03] MEDS ORDERED: METHADONE HCL 40 MG DISPERSABLE TABLET ONE (06:22)
[2018-05-03] MEDS ORDERED: METHADONE HCL 5 MG TABLET ONE (06:22)
[2018-05-03] MEDS ORDERED: METHADONE HCL 10 MG TABLET ONE (06:22)
[2018-05-03] MEDS: METHADONE 80 MG, METHADONE 30 MG, METHADONE 5 MG PO SCH (06:23)
[2018-05-03] MEDS: PRENATAL VITAMINS W/ FOLIC ACID TABLET (FP) PO SCH (10:31)
[2018-05-03] MEDS: MELATONIN 5 MG TABLETS PO PRN (21:32)
[2018-05-03] MEDS: THIAMINE HCL 100 MG TABLET (FP) PO SCH (21:32)
[2018-05-04] MEDS ORDERED: METHADONE HCL 40 MG DISPERSABLE TABLET ONE (05:07)
[2018-05-04] MEDS ORDERED: METHADONE HCL 5 MG TABLET ONE (05:07)
[2018-05-04] MEDS ORDERED: METHADONE HCL 10 MG TABLET ONE (05:07)
[2018-05-04] MEDS: METHADONE 80 MG, METHADONE 30 MG, METHADONE 5 MG PO SCH (06:17)
[2018-05-04] MEDS: PRENATAL VITAMINS W/ FOLIC ACID TABLET (FP) PO SCH (10:58)
[2018-05-04] MEDS: THIAMINE HCL 100 MG TABLET (FP) PO SCH (22:23)
[2018-05-05] MEDS ORDERED: METHADONE HCL 10 MG TABLET ONE (02:59)
[2018-05-05] MEDS ORDERED: METHADONE HCL 5 MG TABLET ONE (02:59)
[2018-05-05] MEDS ORDERED: METHADONE HCL 40 MG DISPERSABLE TABLET ONE (03:00)
[2018-05-05] MEDS: METHADONE 80 MG, METHADONE 30 MG, METHADONE 5 MG PO SCH (06:09)
[2018-05-05] MEDS: PRENATAL VITAMINS W/ FOLIC ACID TABLET (FP) PO SCH (10:41)
[2018-05-05] MEDS: MELATONIN 5 MG TABLETS PO PRN (21:32)
[2018-05-05] MEDS: THIAMINE HCL 100 MG TABLET (FP) PO SCH (21:32)
[2018-05-06] MEDS ORDERED: METHADONE HCL 5 MG TABLET ONE (04:38)
[2018-05-06] MEDS ORDERED: METHADONE HCL 40 MG DISPERSABLE TABLET ONE (04:39)
[2018-05-06] MEDS ORDERED: METHADONE HCL 10 MG TABLET ONE (04:39)
[2018-05-06] MEDS: METHADONE 80 MG, METHADONE 30 MG, METHADONE 5 MG PO SCH (06:19)
[2018-05-06] MEDS: PRENATAL VITAMINS W/ FOLIC ACID TABLET (FP) PO SCH (10:22)
[2018-05-06] MEDS: THIAMINE HCL 100 MG TABLET (FP) PO SCH (21:55)
[2018-05-07] MEDS ORDERED: METHADONE HCL 5 MG TABLET ONE (05:32)
[2018-05-07] MEDS ORDERED: METHADONE HCL 10 MG TABLET ONE (05:33)
[2018-05-07] MEDS ORDERED: METHADONE HCL 40 MG DISPERSABLE TABLET ONE (05:33)
[2018-05-07] MEDS: METHADONE 80 MG, METHADONE 30 MG, METHADONE 5 MG PO SCH (06:31)
[2018-05-07] MEDS: PRENATAL VITAMINS W/ FOLIC ACID TABLET (FP) PO SCH (10:42)
[2018-05-07] MEDS: THIAMINE HCL 100 MG TABLET (FP) PO SCH (22:03)
[2018-05-08] MEDS ORDERED: METHADONE HCL 5 MG TABLET ONE (06:33)
[2018-05-08] MEDS ORDERED: METHADONE HCL 10 MG TABLET ONE (06:33)
[2018-05-08] MEDS ORDERED: METHADONE HCL 40 MG DISPERSABLE TABLET ONE (06:34)
[2018-05-08] MEDS: METHADONE 80 MG, METHADONE 30 MG, METHADONE 5 MG PO SCH (06:34)
[2018-05-08] MEDS: LOPERAMIDE HCL 2 MG CAPSULE PO PRN (06:38)
[2018-05-08] MEDS: PRENATAL VITAMINS W/ FOLIC ACID TABLET (FP) PO SCH (10:19)
[2018-05-08] MEDS: THIAMINE HCL 100 MG TABLET (FP) PO SCH (21:31)
[2018-05-08] MEDS: MELATONIN 5 MG TABLETS PO PRN (21:31)
[2018-05-09] MEDS ORDERED: METHADONE HCL 10 MG TABLET ONE (02:57)
[2018-05-09] MEDS ORDERED: METHADONE HCL 5 MG TABLET ONE (02:57)
[2018-05-09] MEDS ORDERED: METHADONE HCL 40 MG DISPERSABLE TABLET ONE (02:58)
[2018-05-09] MEDS: METHADONE 80 MG, METHADONE 30 MG, METHADONE 5 MG PO SCH (06:08)
[2018-05-09] MEDS: PRENATAL VITAMINS W/ FOLIC ACID TABLET (FP) PO SCH (10:48)
[2018-05-09] MEDS: THIAMINE HCL 100 MG TABLET (FP) PO SCH (21:47)
[2018-05-09] MEDS: MELATONIN 5 MG TABLETS PO PRN (21:47)
[2018-05-10] MEDS ORDERED: METHADONE HCL 5 MG TABLET ONE (05:34)
[2018-05-10] MEDS ORDERED: METHADONE HCL 10 MG TABLET ONE (05:35)
[2018-05-10] MEDS ORDERED: METHADONE HCL 40 MG DISPERSABLE TABLET ONE (05:35)
[2018-05-10] MEDS: METHADONE 80 MG, METHADONE 30 MG, METHADONE 5 MG PO SCH (06:01)
[2018-05-10] MEDS: PRENATAL VITAMINS W/ FOLIC ACID TABLET (FP) PO SCH (10:37)
[2018-05-10] MEDS: THIAMINE HCL 100 MG TABLET (FP) PO SCH (21:49)
[2018-05-11] MEDS ORDERED: METHADONE HCL 5 MG TABLET ONE (03:41)
[2018-05-11] MEDS ORDERED: METHADONE HCL 40 MG DISPERSABLE TABLET ONE (03:41)
[2018-05-11] MEDS ORDERED: METHADONE HCL 10 MG TABLET ONE (03:41)
[2018-05-11] MEDS: METHADONE 80 MG, METHADONE 30 MG, METHADONE 5 MG PO SCH (06:04)
[2018-05-11] MEDS: PRENATAL VITAMINS W/ FOLIC ACID TABLET (FP) PO SCH (10:42)
[2018-05-11] MEDS: THIAMINE HCL 100 MG TABLET (FP) PO SCH (22:03)
[2018-05-12] MEDS ORDERED: METHADONE HCL 5 MG TABLET ONE (04:09)
[2018-05-12] MEDS ORDERED: METHADONE HCL 10 MG TABLET ONE (04:10)
[2018-05-12] MEDS ORDERED: METHADONE HCL 40 MG DISPERSABLE TABLET ONE (04:10)
[2018-05-12] MEDS: METHADONE 80 MG, METHADONE 30 MG, METHADONE 5 MG PO SCH (06:05)
[2018-05-12] MEDS: LOPERAMIDE HCL 2 MG CAPSULE PO PRN (06:08)
[2018-05-12] MEDS: PRENATAL VITAMINS W/ FOLIC ACID TABLET (FP) PO SCH (10:37)
--- NOTE | 2018-05-12 12:31 | PN ---
YVETTE Progress Note Note: patient has history of bladder cancer seen bu urologist at [facility] will follow up with his urologist upon discharge patient did not take coumadin for 1 year,will see his primary care provider upon discharge
[2018-05-12] MEDS: THIAMINE HCL 100 MG TABLET (FP) PO SCH (21:40)
[2018-05-13] MEDS ORDERED: METHADONE HCL 5 MG TABLET ONE (04:50)
[2018-05-13] MEDS ORDERED: METHADONE HCL 40 MG DISPERSABLE TABLET ONE (04:51)
[2018-05-13] MEDS ORDERED: METHADONE HCL 10 MG TABLET ONE (04:51)
[2018-05-13] MEDS: METHADONE 80 MG, METHADONE 30 MG, METHADONE 5 MG PO SCH (06:10)
[2018-05-13] MEDS: PRENATAL VITAMINS W/ FOLIC ACID TABLET (FP) PO SCH (10:36)
[2018-05-13] MEDS: THIAMINE HCL 100 MG TABLET (FP) PO SCH (21:30)
[2018-05-13] MEDS: LOPERAMIDE HCL 2 MG CAPSULE PO PRN (21:31)
[2018-05-14] MEDS ORDERED: METHADONE HCL 5 MG TABLET ONE (05:16)
[2018-05-14] MEDS ORDERED: METHADONE HCL 40 MG DISPERSABLE TABLET ONE (05:17)
[2018-05-14] MEDS ORDERED: METHADONE HCL 10 MG TABLET ONE (05:17)
[2018-05-14] MEDS: METHADONE 80 MG, METHADONE 30 MG, METHADONE 5 MG PO SCH (06:14)
[2018-05-14] MEDS: PRENATAL VITAMINS W/ FOLIC ACID TABLET (FP) PO SCH (10:22)
--- NOTE | 2018-05-14 15:52 | PN ---
Psychiatric Progress Note Vital Signs: Vital Signs Period Temp Pulse Resp BP Sys/Galdamez Pulse Ox Last 24 Hr 98.0 F 63 18-18 127/79 Date of Session: 05/14/18 Chief Complaint:: Discharge Note HPI: Patient addressing Sedative dependence comorbid with Opioid Dependence on Agonist Therapy, Nicotine Dependence ROS: PPD+, DVT, Bladded cancer Current Medications: Active Medications Generic Name Dose Route Start Last Admin Trade Name Freq PRN Reason Stop Dose Admin Acetaminophen 650 mg 05/01/18 15:45 Tylenol - PO Q4H PRN FEVER Al Hydroxide/Mg Hydroxide 30 ml 05/01/18 15:45 Mylanta Oral Suspension - PO Q6H PRN DYSPEPSIA Eucalyptus/Menthol/Phenol/Sorbitol 1 each 05/01/18 15:45 Cepastat Lozenge - MM Q4H PRN SORE THROAT Guaifenesin 10 ml 05/01/18 15:45 Robitussin Dm - PO Q6H PRN COUGH Hydroxyzine Pamoate 50 mg 05/01/18 15:45 05/06/18 21:56 Vistaril - PO 50 mg Q4H PRN Administration AGITATION Ibuprofen 400 mg 05/01/18 15:45 Motrin - PO Q6H PRN Pain Level 4-6 Loperamide HCl 4 mg 05/01/18 15:45 05/13/18 21:31 Imodium - PO 4 mg Q6H PRN Administration DIARRHEA Magnesium Citrate 300 ml 05/01/18 15:45 Citroma - PO Q48H PRN CONSTIPATION Magnesium Hydroxide 30 ml 05/01/18 15:45 Milk Of Magnesia - PO DAILY PRN CONSTIPATION Melatonin 5 mg 05/01/18 22:00 05/09/18 21:47 Melatonin PO 5 mg HS PRN Administration INSOMNIA Methadone HCl 80 mg/ Methadone 115 mg 05/08/18 06:00 05/14/18 06:14 HCl 30 mg/ Methadone HCl 5 mg PO 05/15/18 05:59 115 mg DAILY@0600 NORBERTO Administration Multivit/Folic Acid/Iron 1 tab 05/02/18 10:00 05/14/18 10:22 Vitamins (Sjr) - PO Not Given DAILY NORBERTO Thiamine HCl 100 mg 05/01/18 22:00 05/13/18 21:30 Vitamin B1 - PO 100 mg HS NORBERTO Administration Current Side Effect: No Lab tests ordered: Yes Lab tests reviewed: Yes Provider note:: Patient will complete this program on 05/15/18. He has met his treatment goals and will continue to address his issues in outpatient treatment at [facility]. 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 He is stable for discharge to discharge on 05/15/18 Total face to face time:: 35 Mental Status Exam - Mental Status Exam Alert and Oriented to: Time, Place, Person Cognitive Function: Fair Patient Appearance: Well Groomed Mood: Hopeful, Euthymic Affect: Appropriate Patient Behavior: Cooperative Speech Pattern: Clear Voice Loudness: Normal Thought Process: Intact Thought Disorder: Not Present Hallucinations: Denies Suicidal Ideation: Denies Homicidal Ideation: Denies Insight/Judgement: Fair Sleep: Well Appetite: Good Muscle strength/Tone: Normal Gait/Station: Normal Psychiatric Treatment Plan - Problem List (1) Sedative hypnotic or anxiolytic dependence Current Visit: Yes (2) Opioid dependence on agonist therapy Current Visit: Yes (3) Nicotine dependence Current Visit: Yes (4) Transitional cell carcinoma of bladder Current Visit: No Initial treatment plan: Patient will be discharged tomorrow and referred to [facility] for outpatient treatment
[2018-05-14] MEDS: THIAMINE HCL 100 MG TABLET (FP) PO SCH (21:30)
[2018-05-15] MEDS ORDERED: METHADONE HCL 5 MG TABLET ONE (04:23)
[2018-05-15] MEDS ORDERED: METHADONE HCL 10 MG TABLET ONE (04:24)
[2018-05-15] MEDS ORDERED: METHADONE HCL 40 MG DISPERSABLE TABLET ONE (04:25)
[2018-05-15] MEDS ORDERED: METHADONE 80 MG, METHADONE 30 MG, METHADONE 5 MG PO SCH (06:00)
[2018-05-15 06:30] VITALS: BP 118/74; PULSE 61; TEMP 98.3
[2018-05-15] MEDS: PRENATAL VITAMINS W/ FOLIC ACID TABLET (FP) PO SCH (10:17)
== END 2018-05-15 10:45 | disposition home or self-care (01) | DRG 772 ==
LOC: YASAS 13:49 → Y5N 13:50
PROVIDERS: ADMIT Psychiatry & Neurology Psychiatry; ATTEND Psychiatry & Neurology Psychiatry
PROC: HZ42ZZZ Group Counseling for Substance Abuse Treatment, Cognitive-Behavioral (ICD-10-PCS; principal; 2018-05-01)
DX: F13.20 Sedative, hypnotic or anxiolytic dependence, uncomplicated (principal); F11.20 Opioid dependence, uncomplicated; F17.210 Nicotine dependence, cigarettes, uncomplicated; C67.9 Malignant neoplasm of bladder, unspecified
CPT/HCPCS: 36415; 80053; 85027; 85610; 90670

== ENCOUNTER 2020-05-28 15:35 | Emergency (ER) | payer OTHER ==
[2020-05-28 15:46] VITALS: BP 129/80; PULSE 107; TEMP 98.2; BMI 34.9
[2020-05-28] MEDS ORDERED: DIPHTH,PERTUSS(ACELL),TET 0.5 ML DISP.SYRIN IM ONE ×2 (16:03→16:08)
--- NOTE | 2020-05-28 16:11 | PDOC ---
History of Present Illness - General Chief Complaint: Alcohol intoxication Stated Complaint: INTOX Time Seen by Provider: 05/28/20 15:40 History Source: Patient - History of Present Illness Initial Comments: 05/28/20 16:04 55M PMH bladder ca [place]. Pt estimates he had 7 shots of henessey with friends and was walking home. states there was uneven ground and he tripped and fell. Endorses abrasion to the right elbow. O/w denies cp/sob, f/c, n/v, numbness, tingling, weakness. Denies regular or daily etoh use. NKDA. 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) GI Disorders: No Disorders: No HTN: Yes Kidney Stones: No Liver Disease: No Seizures: No Thyroid Disease: No - Surgical History Abdominal Surgery: No Appendectomy: No Cardiac Surgery: No Cholecystectomy: No Lung Surgery: No Neurologic Surgery: No Orthopedic Surgery: No - Reproductive History Testicular Surgery: No - Psycho-Social/Smoking History Smoking History: Current every day smoker Have you smoked in the past 12 months: Yes Number of Cigarettes Smoked Daily: 5 Cigars Per Day: 0 Information on smoking cessation initiated: No 'Breaking Loose' booklet given: 04/26/18 - Substance Abuse Hx (Audit-C & DAST Scrn) How often the patient has a drink containing alcohol: 4 0r more times/wk Number of drinks the patient has on a typical day: 10 or more How often the patient has six or more drinks on one occasion: Daily or almost daily Score: In Men: 4 or > Positive; In Women: 3 or > Positive: 12 Screen Result (Pos requires Nsg. Audit-10AR): Positive In the last yr the pt used illegal drug/Rx for NonMed reason: No Score: Yes response is considered Positive: 0 Screen Result (Positive result requires Nsg. DAST-10): Negative Review of Systems - Review of Systems Comments:: 05/31/20 17:48 CONSTITUTIONAL: Denies F / C HEENT: Denies headache, changes in vision / hearing RESP: Denies SOB, cough CARD: Denies chest pain GI: Denies N / V / D, abdominal pain : Denies dysuria NEURO: Denies numbness, tingling, weakness MSK: Denies back pain, neck pain SKIN: +abrasion *Physical Exam - Vital Signs Last Vital Signs Temp Pulse Resp BP Pulse Ox 98.2 F 107 H 20 129/80 94 L 05/28/20 15:43 05/28/20 15:43 05/28/20 15:43 05/28/20 15:43 05/28/20 15:43 - Physical Exam 05/31/20 17:48 GEN: NAD, intoxicated but AAOx3, able to provide hx. HEENT: NC/AT, EOMI, PERRL, CN II-XII grossly intact. No facial asymmetry. Moist mucous membranes. Normal voice. Supple neck w/ FROM w/o midline TTP. CV: S1/S2, RRR, no m/r/g LUNG: CTAB, no wheezes, crackles, rales, rhonchi. GI: Soft, ndnt, +BS, no guarding, no rebound. MSK: No obvious deformities of all extremities. BACK: No obvious signs of trauma, no step-offs, no deformities. No midline TTP. SKIN: Warm, dry, no rashes appreciated. PSYCH: Normal mood and affect. NEURO: Moving all extremities well. 5/5 UE and LE strength. Symmetric sensation. Ambulates steady, normal gait. Medical Decision Making - Medical Decision Making 05/31/20 17:48 55M intox trip and fall, neuro intact, ambulates w/ steady gait CT Head and Neck CXR Boostrix plan to dispo home // found to have a negative CT pt dc'd home Discharge - Discharge Information Problems reviewed: Yes Clinical Impression/Diagnosis: Intoxication Condition: Stable Disposition: HOME - Follow up/Referral - Patient Discharge Instructions Additional Instructions: Follow up with your Primary Care Doctor regarding this ED visit as scheduled. Return to the nearest Emergency Department if you experience new or worsening symptoms - Post Discharge Activity
--- NOTE | 2020-05-28 16:16 | PDOC ---
Attending Attestation - Resident Resident Name: David Garcia - ED Attending Attestation I have performed the following: I have examined & evaluated the patient, The case was reviewed & discussed with the resident, I agree w/resident's findings & plan, Exceptions are as noted - HPI HPI: 05/28/20 16:13 55 yo M p/w fall in the setting of etoh use. Patient states he was out with friends and drank too much and was walking home. Sat on a rock and when he got up felt unsteady on his feet but thought he would be able to make it home however fell over after taking a few steps. Thinks he had LOC. Currently without any complaints. - Physicial Exam PE: 05/28/20 16:14 General: well appearing HEENT: NCAT, EOMI, no racoon eyes, no ward sign Neck: supple, no midline tenderness Neuro: aox3, speech fluent, face symmetric, gait steady, responds appropriately to questions, no focal deficits - Medical Decision Making 05/28/20 16:28 55 yo M with mechanical fall in the setting of etoh intox, neurologically intact. Plan: -cxr -CT head -CT c-spine -reassess, if imaging negative will d/c home with retunr precautions, counseled on dangers of excessive etoh consumption, recommend PMD f/u This clinical encounter is taking place during a federal and state health care emergency attributable to the novel James Virus pandemic. The [place] of the Department of Health and Human Services has declared, pursuant to the Public Health Service Act 319F-3 (42 U.S.C. 247d-6d), that a covered persons activities related to medical countermeasures against COVID-19 will be immune from liability under Federal and State law. Pt. signed out to incoming attending. Discharge - Discharge Information Problems reviewed: Yes Clinical Impression/Diagnosis: Intoxication Condition: Stable Disposition: HOME - Follow up/Referral - Patient Discharge Instructions Additional Instructions: Follow up with your Primary Care Doctor regarding this ED visit as scheduled. Return to the nearest Emergency Department if you experience new or worsening symptoms - Post Discharge Activity
== END 2020-05-28 19:02 | disposition home or self-care (01) ==
LOC: JER 15:35
PROC: 3E0234Z Introduction of Serum, Toxoid and Vaccine into Muscle, Percutaneous Approach (ICD-10-PCS; principal; 2020-05-28)
DX: F10.129 Alcohol abuse with intoxication, unspecified (principal)
CPT/HCPCS: 70450-TC; 71046-TC-FY; 72125-TC; 90715; 99285-25